=== PATIENT | male | born 1995 | race Caucasian/White ===

== ENCOUNTER 2021-04-02 19:52 | Emergency (ER) | payer OTHER ==
[2021-04-02 20:07] VITALS: BP 114/79; PULSE 60; TEMP 98.6; BMI 24.9
[2021-04-02] MEDS ORDERED: DEXAMETHASONE SOD PHOSPHATE 10 MG/1 ML VIAL IM ONE (20:22)
== END 2021-04-02 20:35 | disposition home or self-care (01) ==
LOC: JER 19:52
PROC: 3E033NZ Introduction of Analgesics, Hypnotics, Sedatives into Peripheral Vein, Percutaneous Approach (ICD-10-PCS; principal; 2021-04-02)
DX: K13.79 Other lesions of oral mucosa (principal)
CPT/HCPCS: 99283-25; J1100

== ENCOUNTER 2021-11-27 11:07 | Emergency (ER) | payer BC, OTHER ==
[2021-11-27 11:16] VITALS: BP 136/87; PULSE 70; TEMP 97.8; BMI 25.8
[2021-11-27] MEDS ORDERED: DEXAMETHASONE LIQUID 0.5 MG/5 ML PO ONE (11:47)
[2021-11-27] MEDS ORDERED: DEXAMETHASONE SOD PHOSPHATE 10 MG/1 ML VIAL ONE (11:50)
== END 2021-11-27 11:59 | disposition home or self-care (01) ==
LOC: JER 11:07
DX: K13.79 Other lesions of oral mucosa (principal)
CPT/HCPCS: 99283-25